=== PATIENT | female | born 1985 | race Caucasian/White ===

== ENCOUNTER 2022-11-20 13:29 | Outpatient (CLI) | payer OTHER, SELFPAY | END 2022-11-20 13:30 | disposition home or self-care (01) | PROVIDERS: Visit Provider Registered Nurse | DX: Z01.419 Encounter for gynecological examination (general) (routine) without abnormal findings (principal); E04.9 Nontoxic goiter, unspecified; Z13.6 Encounter for screening for cardiovascular disorders; Z13.1 Encounter for screening for diabetes mellitus | CPT/HCPCS: 80061; 82947; 84443 ==

== ENCOUNTER 2022-11-25 15:45 | Outpatient (CLI) | payer OTHER, SELFPAY ==
--- NOTE | 2022-11-25 16:00 | CRLHL7_ITS ---
For Patients: As a result of the Cures Act, medical imaging exams and procedure reports are released immediately into your electronic medical record. You may view this report before your referring provider. If you have questions, please contact your health care provider. INDICATION: NONTOXIC GOITER, UNSPECIFIED COMPARISON: none TECHNIQUE: Headley scale and color Doppler images were acquired of the thyroid gland. FINDINGS: The thyroid gland demonstrates heterogeneous echogenicity and has a lobular left thyroid lobe contour. The right lobe measures 5.9 x 1.9 x 2.5 cm and the left lobe measures 9.5 x 2.3 x 2.7 cm in size. The isthmus measures 5 millimeters. There is a solid circumscribed heterogeneously hypoechoic nodule arising from the lower pole of the left thyroid lobe measuring 5.0 x 3.9 x 4.5 cm. Solid and cystic nodule is present within the inferior pole of the right thyroid lobe measuring 8 x 13 x 13 millimeters. Hypoechoic nodule within the upper pole of the right thyroid lobe measures 8 x 13 x 16 millimeters. The color Doppler images demonstrate normal vascularity. There is no evidence of cervical lymphadenopathy or parathyroid mass. IMPRESSION: 5.0 cm TR 4 nodule arising from the lower pole of the left thyroid lobe. FNA recommended. Dictated by Greyson Painter MD @ 11/26/2022 9:01:55 AM (Electronically Signed)
== END 2022-11-25 15:46 | disposition home or self-care (01) ==
PROVIDERS: Visit Provider Registered Nurse
DX: E04.9 Nontoxic goiter, unspecified (principal)
CPT/HCPCS: 76536

== ENCOUNTER 2022-12-02 15:16 | Outpatient (CLI) | payer OTHER, SELFPAY | END 2022-12-02 15:17 | disposition home or self-care (01) | LOC: FRMREF 15:18 | PROVIDERS: Visit Provider Surgery | DX: E04.1 Nontoxic single thyroid nodule (principal) | CPT/HCPCS: 84443 ==

== ENCOUNTER 2022-12-14 09:00 | Outpatient (CLI) | payer OTHER, SELFPAY ==
--- NOTE | 2022-12-14 09:15 | CRLHL7_ITS ---
For Patients: As a result of the Century Cures Act, medical imaging exams and procedure reports are released immediately into your electronic medical record. You may view this report before your referring provider. If you have questions, please contact your health care provider. INDICATION : Left thyroid nodule. TECHNIQUE : Ultrasound-guided fine needle aspiration of thyroid nodule. Comparison : 11/25/2022 FINDINGS : PROCEDURE: After the informed consent and time-out, multiple fine needle aspirations were obtained from the thyroid nodule. Fine needle performed. 25 gauge needles were used. Lidocaine was used for local anesthesia. The preliminary cytology was adequate for interpretation. Real-time imaging was used for guidance and needle placement. Post imaging ultrasound demonstrates no immediate complication. IMPRESSION : Successful fine needle aspiration of left thyroid nodule. Dictated by Greyson Painter MD @ 12/14/2022 10:05:50 AM (Electronically Signed)
== END 2022-12-14 09:01 | disposition home or self-care (01) ==
LOC: US 09:01
PROVIDERS: Visit Provider Surgery
DX: E04.1 Nontoxic single thyroid nodule (principal)
CPT/HCPCS: 10005; 88173

== ENCOUNTER 2023-01-01 13:31 | Outpatient (CLI) | payer OTHER, SELFPAY | END 2023-01-01 13:32 | disposition home or self-care (01) | LOC: NFLDREF 13:32 | PROVIDERS: Visit Provider Family Medicine | DX: Z01.818 Encounter for other preprocedural examination (principal) | CPT/HCPCS: 80048 ==

== ENCOUNTER 2023-01-11 07:13 | Day surgery (SDC) | payer OTHER, SELFPAY ==
[2023-01-11] VITALS (21 sets, daily range): BP systolic 107–141; BP diastolic 57–84; PULSE 69–94; RESP 12–16; TEMP 36.3–36.8; O2SAT 96–99; BMI 29.7
[2023-01-11] MEDS: LACTATED RINGERS 1000 ML 1,000 ML 100 ML IV ×3 (08:00→16:30)
[2023-01-11] MEDS: SODIUM CHLORIDE 0.9 % (FLUSH) 10 ML SYRINGE IVF (08:00)
[2023-01-11 08:30] LABS: HCG Qualitative Serum* Negative (Negative)
[2023-01-11] MEDS: CEFAZOLIN 2 GM INJ IVP (08:50)
[2023-01-11] MEDS: BUPIVACAINE 0.25% 30 ML INJECTION (13:54)
--- NOTE | 2023-01-11 14:15 | PM.GSPRC ---
Operative Note Pre-op diagnosis: Left-sided inferior pole thyroid nodule measuring 5 by 4.5 cm Post-op diagnosis: Extrathyroid substernal left thyroid nodule, measuring greater than 5 cm Type of Procedure: 1. Left thyroid lobectomy 2. Attempted excision left thyroid inferior pole nodule; biopsy without resection Indications: The patient is a 37-year-old female who was found to have a left thyroid nodule on clinical exam. Ultrasound showed a 5 x 4.5 cm nodule. This was biopsied and found to be benign. Please see Dr. Warren's documentation regarding preoperative decision-making discussion prior to surgery. Procedure Description: I arrived to the OR after Dr. Warren had made the initial incision as well as the sub platysmal flaps. I assisted retracting while she incised the midline raphe, carefully dissecting the strap muscles off the thyroid itself on the left. Once the thyroid was encountered, I retracted this medially while Dr. Warren retracted the strap muscles laterally. She dissected the wispy adhesions between the muscle and the thyroid using a right angle. I divided these with cautery. Small vessels were ligated with Vicryl ties and clips prior to dividing. This was done by Dr. Warren. Once the anterior lateral thyroid was dissected free, we took our dissection superiorly. I retracted the thyroid inferiorly and medially. Dr. Warren began her dissection medially. She dissected the wispy adhesions in the space of Berry and took that dissection superiorly. The superior pole vessels were then taken sequentially. Dr. Warren dissected these out using a right angle and then ligated them doubly with ties and clips before dividing them. Care was taken to stay on the gland itself to avoid injury to the superior laryngeal nerve. We then took our dissection inferiorly and laterally, completely mobilizing the superior pole. Once this was done our dissection proceeded inferiorly. Branches of the middle thyroid vein were encountered. Dr. Warren sequentially dissected these out, ligated and divided them, freeing up the lateral thyroid and exposing the posterior aspect. We then turned our attention to the inferior pole where there appeared to be a palpable nodule. The inferior pole vessels were dissected out again by Dr. Warren while I retracted the thyroid superiorly and medially. These were again doubly ligated with clips and ties before being divided. The inferior lobe of the thyroid was not attached to any structures inferiorly. Once the vessels were ligated, the inferior lobe was free and I was able to rotate the thyroid medially exposing the posterior aspect. Dr. Warren then carefully dissected the tissue posterior to the thyroid, clipping or ligating small blood vessels before dividing. The recurrent laryngeal nerve was identified in its usual location. The Nim monitor identified that this was indeed the nerve. Dr. Warren then was able to deliver the thyroid from the incision and I reflected it medially. She then was able to divide the ligament of Le and dissect the thyroid from the trachea using cautery. This was taken to the midline. She then divided the isthmus using LigaSure. She then marked the thyroid with a stitch superiorly and at the isthmus. The specimen was examined. It did not appear to contain a nodule as large as 5 cm. The wound bed was examined. At the inferior aspect of the wound, there was a firm area that was bulging into the field. The tissue overlying this was incised and this appeared to be the thyroid nodule of note. This appeared to be completely separate from the thyroid itself. We then began dissecting this out. I carefully manipulated the capsule to pull this up into the neck, while Dr. Warren used a combination of cautery and a right angle to divide the adhesions. Small vessels were again ligated with ties. We were able to dissect this nodule laterally, posteriorly medially. Anteriorly this was diving below the sternal notch and clavicle. This was difficult to expose. The strap muscles were divided down to the sternal notch to better facilitate exposure. This did not help significantly. Using finger dissection we were unable to palpate the most inferior extent of the nodule. This appeared to be longer than the 5 cm that was measured on the ultrasound. The nodule did tear and some material that appeared consistent with thyroid tissue came out. This was sent to pathology. I continued to retract the nodule for Dr. Warren and she continued to attempt to dissect this free from behind the clavicle, however this was very difficult because it was very stuck in the mediastinum. The capsule was bleeding in areas which indicated there was still a blood supply to the nodule likely coming from deeper in the mediastinum. We were unable to deliver this into the neck, because of its location and how adherent it was in the mediastinum, we had concerns that continued attempts to pull the nodule into the neck could cause significant bleeding in the mediastinum. After exploring options it was felt the safest route was to ensure hemostasis and stop the operation at this point, with plans to await the biopsy results and refer to tertiary center after obtaining imaging of the chest. Dr. Warren then oversewed the tear in the thyroid capsule. This resulted in hemostasis. A Valsalva maneuver was then performed by anesthesia. We examined the entire thyroid bed as well as the nodule. There was no bleeding noted. The recurrent laryngeal nerve was visible in its usual location and appeared to be intact. I then returned the remainder of the case over to Dr. Warren. Findings: Large left thyroid nodule extending into and densely adherent in the mediastinum - measuring larger than 5 cm in length as measured on ultrasound. Anesthesia: GETA Surgeon: Shira Warren MD Co-Surgeon: Brynn Bowman MD Estimated blood loss (mL): 30 Additional Specimen Information: 1. Left thyroid lobe 2. Portion of extra thyroid substernal nodule. Condition: stable Disposition: PACU Date of procedure: 01/11/23
--- NOTE | 2023-01-11 14:26 | W.ANESCHARGE ---
Anesthesia Charges Start Date/Time Anesthesia Start Date: 01/11/23 Anesthesia Start Time: 08:34 Stop Date/Time Anesthesia Stop Date: 01/11/23 Anesthesia Stop Time: 14:27
[2023-01-11] MEDS: fentaNYL 100 MCG/2 ML inj 50 MCG IVP ×2 (14:40→14:50)
[2023-01-11 16:29] LABS: Ionized Calcium* 1.15 mmol/L (1.11-1.30)
[2023-01-11] MEDS: HYDROmorphone 0.5 mg/0.5 ml inj IVP (16:32)
[2023-01-11 16:55] LABS: Hemoglobin* 11.7 gm/dL (12.0-16.0)
[2023-01-11] MEDS: ONDANSETRON 2 MG/ML inj IVP (17:35)
--- NOTE | 2023-01-11 18:05 | PM.GSPN ---
Subjective Subjective Date Seen: 01/11/23 Interval history: Patient was seen postoperatively. She had vomited twice after surgery. She was trying to go to the bathroom and urinate on the commode but was not successful. Patient would like to wait prior to straight cathing. Exam Narrative: Exam Narrative: Neck is soft with no expanding hematoma. The drain output is bloody and has about 1/3 of the bulb filled. Const: Vital Signs, click to edit/add: Vital Signs - 24 hr 01/11/23 07:31 01/11/23 14:25 01/11/23 14:30 Temperature 97.4 F L 98.1 F Pulse Rate 90 94 87 Pulse Rate [Right Pulse Oximeter] Respiratory Rate 16 14 16 Blood Pressure 122/70 114/60 114/65 Blood Pressure [Ri ght Arm] Pulse Oximetry 97 96 96 Oxygen Delivery Me thod Room Air Room Air Room Air Oxygen Flow Rate 01/11/23 14:35 01/11/23 14:40 01/11/23 14:45 Temperature Pulse Rate 86 82 82 Pulse Rate [Right Pulse Oximeter] Respiratory Rate 16 16 14 Blood Pressure 108/60 109/57 L 107/65 Blood Pressure [Ri ght Arm] Pulse Oximetry 97 96 98 Oxygen Delivery Me thod Room Air Room Air Nasal Cannula Oxygen Flow Rate 2 01/11/23 14:50 01/11/23 14:55 01/11/23 15:00 Temperature 98 F Pulse Rate 77 71 77 Pulse Rate [Right Pulse Oximeter] Respiratory Rate 14 14 14 Blood Pressure 114/61 114/58 L 114/60 Blood Pressure [Ri ght Arm] Pulse Oximetry 98 98 98 Oxygen Delivery Me thod Nasal Cannula Nasal Cannula Nasal Cannula Oxygen Flow Rate 2 2 2 01/11/23 15:15 01/11/23 15:30 01/11/23 15:45 Temperature 98.2 F 98.2 F 98.0 F Pulse Rate 74 Pulse Rate [Right Pulse Oximeter] 69 71 Respiratory Rate 16 16 12 Blood Pressure Blood Pressure [Ri ght Arm] 129/74 123/72 121/70 Pulse Oximetry 96 97 Oxygen Delivery Me thod Nasal Cannula Nasal Cannula Nasal Cannula Oxygen Flow Rate 2 2 01/11/23 16:00 01/11/23 16:15 01/11/23 16:45 Temperature 98.0 F 97.9 F 97.9 F Pulse Rate Pulse Rate [Right Pulse Oximeter] 72 75 75 Respiratory Rate 16 16 16 Blood Pressure Blood Pressure [Ri ght Arm] 126/70 121/73 114/72 Pulse Oximetry 97 97 97 Oxygen Delivery Me thod Nasal Cannula Nasal Cannula Nasal Cannula Oxygen Flow Rate 2 2 2 Progress Note: A&P Assessment and plan (1) History of thyroidectomy, subtotal: Status: Acute Plan 37-year-old female s/p left thyroid lobectomy and exploration of extra thyroid substernal nodule POD 0. We can try Compazine for nausea and vomiting as needed. Patient's hemoglobin is down to 11.7 from 13 but her neck is soft with no evidence of expanding hematoma. The drain output is bloody and will continue monitoring that. Patient's calcium is normal. I discussed the surgical findings with the patient and the fact that we were not able to remove her large substernal thyroid nodule. All questions were answered. I discussed with the nurse that if in 1 hour patient is not able to urinate, we should straight cath her.
--- NOTE | 2023-01-11 19:05 | PC.NURSE ---
Addendum entered by Jennifer Valenzuela RN 01/12/23 07:41: Late entry for 01/11/23: All charting, vitals, medication administration, and nurses note that were done by Мария MATTA reviewed by instructional writer. MARY LOU drained by instructional writer. New orders placed done with supervision by instructional writer. Around 1900 patient c/o tingling in fingers, Dr. Warren called with new orders for labs, see chart. Charge updated. Original Note: Pt arrived from OR to Med/Surg at approximately 15:15. VSS, patient oriented to person, place, and time. Dressing over sight is dry and intact. MARY LOU drain patent and draining bloody drainage. Ice pack applied to sight. First time patient got up to use bathroom, patient was an assist of 2 and complained of dizziness and nausea. Patient vomited roughly 10mL of green/yellow emesis. Nausea medication given per JUN. Patient was transferred to bedside commode and was unable to void despite stating feeling an urge to void. Pt complained of nausea on transfer back to bed, MD present. Pt vomited roughly 10mL of additional green/yellow emesis. Intervention medications ordered per MD, then cancelled due to patient condition change. Patient reports pain in neck and rates as 4/10. Intervention medications given with relief reported by patient. Patient is resting comfortably with family at bedside.
[2023-01-11 20:05] LABS: Ionized Calcium* 1.15 mmol/L (1.11-1.30)
[2023-01-11 20:24] LABS: Calcium* 8.9 mg/dL (8.4-10.6)
--- NOTE | 2023-01-11 20:36 | PC.NURSE ---
Dr. Warren updated via telephone on the following: Ionized calcium and calcium results, no tingling in/around lips, and lessening tingling in fingers. New order obtained for Ativan prn x1 if needed.
[2023-01-11] MEDS: ACETAMINOPHEN 325 MG TABLET 650 MG PO (22:58)
[2023-01-12] MEDS: LACTATED RINGERS 1000 ML 1,000 ML 100 ML IV (02:07)
[2023-01-12 03:10] VITALS: BP 117/65; PULSE 87; RESP 16; TEMP 36.9; O2SAT 98
[2023-01-12] MEDS: ACETAMINOPHEN 325 MG TABLET 650 MG PO (06:13)
--- NOTE | 2023-01-12 06:34 | PC.NURSE ---
END OF SHIFT NOTE: PT PLEASANT AND COOPERATIVE. A&Ox4. DENIES CP, SOB, N/V. PT RATED THROAT/NECK PAIN 2-4/10 WITH RELIEF FROM PRN TYLENOL. PT REPORTED FINGERS TINGLING. [facility] UPDATED; ORDERED LABS. LAB RESULTS NORMAL AND REPORTED TO [facility]. TINGLING TO FINGERS RESOLVED ON OWN. AMBULATES WITH SBA TO BSC. VSS ON RA; AFEBRILE. MARY LOU DRAINING SEROSANGUINEOUS OUTPUT. LEFT WRIST IV PATENT WITH LR@100. LSCTA. CALL LIGHT WITHIN PT?S REACH.
--- NOTE | 2023-01-12 07:05 | PM.GSPRC ---
Operative Note Pre-op diagnosis: 1. Left thyroid lobe benign colloid nodule measuring 5 x 4.5 cm. Post-op diagnosis: 1. Extra thyroid substernal thyroid nodule measuring approximately 10 x 8 cm. Type of Procedure: 1. Left thyroid lobectomy. 2. Exploration of the left extra thyroid substernal nodule without resection. Indications: 37-year-old female was seen in clinic for evaluation of a left thyroid nodule that was noted by her primary care doctor during exam for ear popping. Patient was referred for an ultrasound that showed 5 x 4.5 cm hypoechoic left thyroid nodule with no calcifications. Patient's TSH was normal. Patient did not have any issues swallowing prior to discovery of this nodule but afterwards was noticing more trouble swallowing on the left side. She was not sure if this was related to the nodule. In the last 8 months patient intentionally lost 60 lb. Patient's father had neuroendocrine tumor of his intestine. Patient underwent fine-needle aspiration of this nodule and that showed benign colloid nodule. On clinical exam patient has right-sided sternocleidomastoid muscle was more prominent than the left. There was no discrete nodule palpated but there was fullness on the left side of the thyroid lobe. Given patient's thyroid nodule size, conservative treatment with repeat ultrasounds versus left thyroid lobectomy were discussed. The surgery was discussed in detail. Patient elected to proceed with left thyroid lobectomy. The risks of infection, bleeding, injury to recurrent laryngeal nerve, or possibility of other procedures were all discussed with the patient, she agreed to proceed. Procedure Description: After discussing the risks and benefits of the procedure, the patient signed informed consent.? The operative site was marked and the patient was brought to the operating room and placed on the operating table in supine position.? Patient was intubated by anesthesia with a Nim tube. Care was taken to pad the patient's pressure points a shoulder roll was placed under patient's scapula. The operative site was then prepped and draped in the usual sterile fashion.? A time-out was then performed. Neck skin incision was made with a scalpel in an existing crease about 1.5 finger breadth above the sternal notch. Subcutaneous tissues and platysma were divided with electrocautery. Skin flaps were created superiorly and inferiorly. Fascia was divided and strap muscles were retracted laterally exposing the thyroid gland. We directed our attention to the left thyroid lobe. Strap muscles were retracted laterally and thyroid gland was retracted medially exposing the wispy thyroid attachments. Those were divided with cautery. Vessels going to the superior pole of the thyroid were identified and divided with vicryl ties and vascular clips. Middle thyroid vein was ligated with vicryl ties as well. The gland was then retracted superiorly and medial. Inferior thyroid vasculature was dissected off and divided with vicryl ties. The left recurrent laryngeal nerve was visualized and its presence was confirmed by nerve stimulator. Care was taken to avoid its injury. No lymphadenopathy was noted. Mobilization of the left side was then completed by dividing the ligament of Le on that side. The isthmus was then divided with LigaSure at midline. The left thyroid lobe was marked with a single stitch superior and double stitch at the isthmus. The left thyroid lobe was examined closely and there was a smaller nodule identified in the inferior lobe but it was not as large as 5 cm. The tissues near the inferior lobe of the thyroid were palpated and an extra thyroid mass was palpated inferior to the left thyroid being completely separate from the thyroid lobe itself. Fascia overlying this mass was incised with cautery. This incision was extended towards the sternal notch. A thyroid nodule was then visualized that was soft and partially cystic by palpation. This thyroid nodule was mobilized superiorly and laterally by dividing the vascular attachments and vascular supply of its surrounding capsule to the thyroid nodule with Vicryl and vascular clips. The nodule was retracted into the surgical field but continued to extend inferiorly behind the sternal notch and into the superior mediastinum. It had a small daughter nodule on the left side extending behind the sternal notch. With manipulation of the nodule with instruments, the nodule was entered and thin clear fluid came out from the nodule as well as mucus appearing nodule mucosa. This mucosa was sent to pathology as pieces of thyroid nodule. We attempted to bluntly mobilize the nodule behind the sternal notch with minimal wrist retraction but it was difficult to visualize the inferior part of the nodule. Given the difficult location of this nodule and its extension beyond the sternal notch into the superior mediastinum, we were worried about potential hemorrhage with inability to control it given our practice and absence of cardiothoracic surgery in house. Discussion was held and we elected to leave the nodule as is and abort the procedure. The openings into the nodule itself were oversewn with Vicryl sutures. Hemostasis was achieved with cautery and Vicryl sutures. Surgicel was placed just posterior to the nodule and left in place. No active bleeding was seen. A 10F round Rogelio drain was then placed through a separate stab incision in the skin on the left side. This drain was placed through the subcutaneous place and came out between the strap muscles. The drain was placed just posterior to the extra thyroid substernal nodule. The left thyroid surgical field was then examined with Valsalva and no bleeding was seen. No bleeding was seen from the exploration field of the left extra thyroid nodule. We then proceeded with closure. Strap muscles and fascia were re-approximated with a running 3-0 vicryl suture. Platysma was also re-approximated with interrupted 3-0 vicryl sutures. We placed several subdermal stitches with vicryl to relieve the tension off the tissues and re-approximate subcutaneous tissues. The skin was closed with 4-0 monocryl running subcuticular stitch. Steri strips, sterile 4x4 and Tegaderm were used to cover the incision. A drain sponge was placed under the drain. At the end of the case, counts were correct. Patient tolerated procedure well and was transferred to the PACU in stable condition. Findings: A large at least 10 x 8 cm extra thyroid substernal thyroid nodule was identified. Given the size and its location with extension into the superior mediastinum, were not able to resect this nodule at this hospital. Anesthesia: GETA Surgeon: Phyllis Warren MD Co-Surgeon: Brynn Bowman MD Estimated blood loss (mL): 30 Additional Specimen Information: 1. Left thyroid lobe. 2. Pieces of extrathyroid substernal nodule. Condition: stable Disposition: PACU Date of procedure: 01/11/23
--- NOTE | 2023-01-12 07:56 | P.DS_ITS ---
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 Her surgical drain had small amount of bloody drainage and was left in place at discharge. Her post op calcium was normal. She urinated post operatively and was tolerating clears. Her pain was controlled with Tylenol. Time Spent with Patient Time attestation: Total time spent providing and/or coordinating discharge services: Exam Narrative: Exam Narrative: Neck: surgical incision is covered with dry and clean dressing, the tissue around the incision are soft with no expanding hematoma. patient's voice is normal. MARY LOU drain with small amount of bloody drainage. Const: Vital Signs, click to edit/add: Vital Signs - 24 hr 01/11/23 14:25 01/11/23 14:30 01/11/23 14:35 Temperature 98.1 F Pulse Rate 94 87 86 Pulse Rate [Pulse Oximeter] Pulse Rate [Right Pulse Oximeter] Respiratory Rate 14 16 16 Blood Pressure 114/60 114/65 108/60 Blood Pressure [Le ft Arm] Blood Pressure [Ri ght Arm] Pulse Oximetry 96 96 97 Oxygen Delivery Me thod Room Air Room Air Room Air Oxygen Flow Rate 01/11/23 14:40 01/11/23 14:45 01/11/23 14:50 Temperature Pulse Rate 82 82 77 Pulse Rate [Pulse Oximeter] Pulse Rate [Right Pulse Oximeter] Respiratory Rate 16 14 14 Blood Pressure 109/57 L 107/65 114/61 Blood Pressure [Le ft Arm] Blood Pressure [Ri ght Arm] Pulse Oximetry 96 98 98 Oxygen Delivery Me thod Room Air Nasal Cannula Nasal Cannula Oxygen Flow Rate 2 2 01/11/23 14:55 01/11/23 15:00 01/11/23 15:15 Temperature 98 F 98.2 F Pulse Rate 71 77 74 Pulse Rate [Pulse Oximeter] Pulse Rate [Right Pulse Oximeter] Respiratory Rate 14 14 16 Blood Pressure 114/58 L 114/60 Blood Pressure [Le ft Arm] Blood Pressure [Ri ght Arm] 129/74 Pulse Oximetry 98 98 Oxygen Delivery Me thod Nasal Cannula Nasal Cannula Nasal Cannula Oxygen Flow Rate 2 2 01/11/23 15:30 01/11/23 15:45 01/11/23 16:00 Temperature 98.2 F 98.0 F 98.0 F Pulse Rate Pulse Rate [Pulse Oximeter] Pulse Rate [Right Pulse Oximeter] 69 71 72 Respiratory Rate 16 12 16 Blood Pressure Blood Pressure [Le ft Arm] Blood Pressure [Ri ght Arm] 123/72 121/70 126/70 Pulse Oximetry 96 97 97 Oxygen Delivery Me thod Nasal Cannula Nasal Cannula Nasal Cannula Oxygen Flow Rate 2 2 2 01/11/23 16:15 01/11/23 16:45 01/11/23 16:45 Temperature 97.9 F 97.9 F 97.9 F Pulse Rate Pulse Rate [Pulse Oximeter] Pulse Rate [Right Pulse Oximeter] 75 75 71 Respiratory Rate 16 16 14 Blood Pressure Blood Pressure [Le ft Arm] Blood Pressure [Ri ght Arm] 121/73 114/72 114/72 Pulse Oximetry 97 97 97 Oxygen Delivery Me thod Nasal Cannula Nasal Cannula Nasal Cannula Oxygen Flow Rate 2 2 2 01/11/23 17:15 01/11/23 18:15 01/11/23 19:29 Temperature 97.9 F 97.9 F Pulse Rate Pulse Rate [Pulse Oximeter] Pulse Rate [Right Pulse Oximeter] 70 70 76 Respiratory Rate 16 16 Blood Pressure Blood Pressure [Le ft Arm] Blood Pressure [Ri ght Arm] 125/77 133/77 129/84 Pulse Oximetry 97 96 99 Oxygen Delivery Me thod Room Air Room Air Room Air Oxygen Flow Rate 01/11/23 20:20 01/11/23 21:30 01/11/23 23:00 Temperature 98.0 F 97.8 F Pulse Rate Pulse Rate [Pulse Oximeter] 85 Pulse Rate [Right Pulse Oximeter] 84 77 Respiratory Rate 16 14 16 Blood Pressure Blood Pressure [Le ft Arm] Blood Pressure [Ri ght Arm] 141/82 H 125/77 Pulse Oximetry 98 97 Oxygen Delivery Me thod Room Air Room Air Oxygen Flow Rate 01/11/23 23:00 01/12/23 03:10 Temperature 97.6 F 98.4 F Pulse Rate Pulse Rate [Pulse Oximeter] 85 87 Pulse Rate [Right Pulse Oximeter] Respiratory Rate 16 16 Blood Pressure Blood Pressure [Le ft Arm] 124/75 Blood Pressure [Ri ght Arm] 117/65 Pulse Oximetry 98 98 Oxygen Delivery Me thod Room Air Room Air Oxygen Flow Rate DS: Data Data Completed and Pending Labs on day of discharge: Labs from last 24 hours 01/11/23 01/11/23 01/11/23 20:00 16:25 08:00 Hgb 11.7 L Calcium 8.9 Ionized Calcium Alec 1.15 1.15 HCG, Qual Negative Discharge Plan Discharge Disposition: Home, Self-Care Discharging Surgeon: Phyllis Warren Follow-Up Appointment: [facility] for drain removal, 2 weeks [facility] f/u Prescriptions: New hydrocodone-acetaminophen 5-325 mg tablet 1 tab PO Q6H PRN (Reason: pain) Qty: 25 0RF Activity Level: No strenuous activity Activity Detail: no streneous activity for 3-4 weeks Discharge Diet: Regular Patient Instructions: Surgical Site Infections (DC) Additional Instructions: please teach patient how to care and empty her drain. Patient can discharge home later today if her HgB is stable and if she is steady on her feet. Forms: Work/School Release Follow-up: Phyllis Warren MD [Staff Physician] - Discharge Orders: Discharge Order (Routine); Ordered 01/12/23 Ordered By: Phyllis Warren
[2023-01-12 08:14] LABS: Hemoglobin* 10.7 gm/dL (12.0-16.0)
[2023-01-12 08:37] VITALS: BP 137/79; PULSE 97; RESP 16; TEMP 37.1; O2SAT 94
--- NOTE | 2023-01-12 08:42 | PC.NURSE ---
PATIENT REPORTS 4/10 NECK PAIN AND HEADACHE PAIN AT THIS TIME MAINLY WHEN SWALLOWING. RN DISCUSSED PAIN MANAGEMENT WITH PATIENT INCLUDING PRN DILAUDID THOUGH PATIENT DECLINING AT THIS TIME REPORTING THAT PAIN IS MANAGEABLE. ICE PACK OFFERED- PATIENT REPORTS SHE TRIED THAT LAST EVENING THOUGH WAS ONLY ABLE TO LEAVE ICE ON FOR APPROXIMATELY 3 MINUTES AND DECLINING ICE THIS MORNING. PATIENT EATING BREAKFAST AT THIS TIME WITH PRESENT AT BEDSIDE. MD BALLARD SAW PATIENT THIS MORNING AND ADVANCED PATIENT TO REGULAR DIET. PATIENT WAS ABLE TO SAFELY AMBULATE FROM BED TO BATHROOM WITH SBA FROM THIS NUTRITION COUNSELOR AND VOIDED 800 ML OF PAOLO COLORED URINE. DRESSING TO NECK NOTED TO BE CLEAN, DRY AND INTACT UPON INSPECTION AND IV IS PATENT WITH LR RUNNING PER ORDER. BOWEL SOUNDS NOTED TO BE ACTIVE IN ALL FOUR QUADRANTS AND LUNG SOUNDS CLEAR TO ALL LOBES BILATERALLY. NUTRITION COUNSELOR ALERTED PATIENT THAT SHE CAN HAVE PRN DILAUDID IV OR PRN TYLENOL FOR PAIN WITH NEXT DOSE AVAILABLE AT 1213. PLAN IS FOR PATIENT TO AMBULATE HALLWAY AFTER BREAKFAST WITH STAFF ASSIST.
--- NOTE | 2023-01-12 09:46 | PC.NURSE ---
THIS RN PROVIDED PATIENT TEACHING REGARDING STRIPPING AND EMPTYING OF MARY LOU DRAIN. 15 ML OUTPUT NOTED FROM DRAIN THIS MORNING WHICH WAS BRIGHT RED IN COLOR. TUBING REMAINS PATENT. PATIENT STATES SHE WOULD LIKE SCRIPT FOR PRN PAIN MEDICATION AFTER DISCHARGE, THIS WILL BE FILLED BY [facility]. RN ASSISTED PATIENT WITH AMBULATION IN HALLWAY AFTER BREAKFAST. PATIENT TOLERATED AMBULATION WELL AND DENIED LIGHTHEADEDNESS/DIZZINESS WHEN ASKED.
[2023-01-12] MEDS: HYDROCODONE-ACETAMIN 5-325 MG 1 TAB PO (11:20)
[2023-01-12 11:31] VITALS: BP 122/70; PULSE 90; RESP 16; TEMP 36.7; O2SAT 96
--- NOTE | 2023-01-12 12:27 | PC.NURSE ---
IV TO L WRIST SALINE LOCKED AT 1215 DUE TO DISCHARGE ORDER IN PLACE.
--- NOTE | 2023-01-12 15:02 | PC.NURSE ---
PATIENT DISCHARGED AT APPROXIMATELY 1410. MARY LOU DRAIN WAS EMPTIED JUST PRIOR TO DISCHARGE AND WAS NOTED TO BE HAVING SEROSANGUINEOUS DRAINAGE. PATIENT AWARE OF HOW TO STRIP TUBING AND EMPTY DRAIN ALONG WITH RECORDING OUTPUT THIS EDUCATION WAS COMPLETED THIS MORNING. PATIENT WAS ALSO INSTRUCTED TO BRING RECORD OF MARY LOU DRAINAGE AMOUNTS TO FOLLOWUP APPOINTMENT. RESIDENT ABLE TO AMBULATE WITH SBA AND WAS DENYING DIZZINESS WITH AMBULATION WHEN ASKED BEFORE DISCHARGE. IV TO LEFT WRIST REMOVED PRIOR TO DISCHARGE. PATIENT DISCHARGED WITH TRANSPORTATION PROVIDED BY . PATIENT WAS EATING AND DRINKING WELL AND HEADACHE PAIN WAS 1/10 PER PATIENT REPORT PRIOR TO DISCHARGE. URINE WAS NOTED TO BE PALE YELLOW WITH NO SEDIMENT, HEMATURIA OR ODOR NOTED. DRESSING TO LEFT SIDE OF NECK REMAINED CLEAN, DRY AND INTACT PRIOR TO DISCHARGE.
== END 2023-01-12 14:10 | disposition home or self-care (01) ==
LOC: OR 07:15 → MEDSURG 07:17
PROVIDERS: Nurse Anesthetist, Certified Registered; PCP Family Medicine; Visit Provider Surgery
PROC: (CPT 60220; principal; 2023-01-11 08:30)
DX: E04.1 Nontoxic single thyroid nodule (principal)
CPT/HCPCS: 60220; 00320; 36415; 81025; 82310; 82330; 84703; 85018; 88305; 88307; A9270; J0330; J0665; J0690; J1100; J1170; J2250; J2371; J2405; J2704; J3010; J7120

== ENCOUNTER 2023-02-16 13:04 | Outpatient (CLI) | payer OTHER, SELFPAY ==
--- NOTE | 2023-02-16 14:00 | CRLHL7_ITS ---
For Patients: As a result of the Century Cures Act, medical imaging exams and procedure reports are released immediately into your electronic medical record. You may view this report before your referring provider. If you have questions, please contact your health care provider. Indication: GOITER. NON TOXIC, MULTINODULAR Technique: Post contrast CT chest. 75 cc Isovue 370 intravenous contrast. Please note that all CT scans at this facility use dose modulation, iterative reconstruction, and/or weight-based dosing when appropriate to reduce radiation dose to as low as reasonably achievable. Comparison: Ultrasound thyroid 11/25/2022 and ultrasound thyroid FNA 12/14/2022 Findings: Postoperative changes of partial left thyroidectomy with numerous surgical clips. There is a heterogeneous mass within the upper left mediastinum measuring 3.7 x 2.7 cm with resultant mild deviation of the trachea to the right. Small thyroid nodules on the right. Mild residual thymic tissue in the anterior mediastinum. The upper abdomen is unremarkable. No adenopathy. Nodular density within the right lower lobe at the costophrenic angle measuring 6 millimeters, 3/79. Small pleural-based nodular densities are present on the 8 measuring up to 4.7 millimeters. Pleural-based nodule on the left measuring 5 millimeters, series 3, image 67. Smaller pleural based densities are present in the posterior left lung. No infiltrate or edema. No effusion or pneumothorax. No fibrosis. Discogenic spurring at several levels within the thoracic spine with Schmorl`s nodes and reactive sclerotic changes. No suspicious osseous findings. Impression: Postoperative changes of partial left thyroidectomy. 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 Several small pulmonary nodules bilaterally primarily in a subpleural distribution measuring up to 6 millimeters. One year follow-up suggested. No intrathoracic adenopathy. Please note that all CT scans at this facility use dose modulation, iterative reconstruction, and/or weight-based dosing when appropriate to reduce radiation dose to as low as reasonably achievable. Dictated by Greyson Painter MD @ 02/17/2023 9:46:21 AM (Electronically Signed)
== END 2023-02-16 13:05 | disposition home or self-care (01) ==
LOC: CT 13:05
PROVIDERS: PCP Family Medicine; Visit Provider Surgery
DX: E04.2 Nontoxic multinodular goiter (principal); R91.8 Other nonspecific abnormal finding of lung field
CPT/HCPCS: 71260; Q9967

== ENCOUNTER 2024-10-03 15:57 | Outpatient (CLI) | payer OTHER, SELFPAY | END 2024-10-03 15:58 | disposition home or self-care (01) | PROVIDERS: PCP Family Medicine; Visit Provider Family Medicine | DX: E04.2 Nontoxic multinodular goiter (principal); Z86.2 Personal history of diseases of the blood and blood-forming organs and certain disorders involving the immune mechanism | CPT/HCPCS: 80048; 84443; 85025 ==